=== PATIENT | female | born 1965 | race Asian ===

== ENCOUNTER 2017-03-30 14:00 | Outpatient (CLI) | payer BC ==
--- NOTE | 2017-03-31 09:00 | Mammography Report ---
Bilateral digital screening mammogram with CAD. No prior studies available for comparison. Findings: There is intermediate density of the fibroglandular tissue. A densely calcified subcentimeter nodular asymmetry in the left breast demonstrates benign features. A single biopsy clip is noted in the right breast centrally. No architectural distortion or suspicious calcifications are seen. Impression: No suspicious findings. BI-RADS code: 2. Recommendation: Annual screening.
--- NOTE | 2017-03-31 09:01 | Mammography Report ---
BONE DENSITY STUDY: DEFINITIONS: BMD = Bone Mineral Density T-score = BMD related to mean peak bone mass of young adult (mean expressed in Standard Deviation) Z-score = Age matched BMD expressed in SD World Health Organization (WHO) Diagnostic Criteria Normal T-score > -1 SD Osteopenia T-score between -1 and -2.4 SD Osteoporosis T-score -2.5 SD or below FINDINGS: The weighted average BMD of lumbar spine L1-L4 is 0.734 with a T-score of -2.8. The weighted average BMD of hip is 0.819 with a T-score of -1.0. IMPRESSION: The patient's T-score is diagnostic for osteoporosis and high relative risk for fracture. NOTE: BMD is not the only risk factor for fracture; also consider factors such as the patient's age, risk of falling, previous osteoporotic fracture, family history of osteoporotic fractures, current smoker, and low body weight. Cota's triangle is a region of interest in femur, predominantly of trabecular bone. It is not a true anatomic site, and [facility] does not recommend its use clinically.
== END 2017-03-30 14:01 | disposition home or self-care (01) ==
LOC: MAMMO 14:00
PROVIDERS: ATTEND Hospitalist
DX: Z12.31 Encounter for screening mammogram for malignant neoplasm of breast (principal); M81.0 Age-related osteoporosis without current pathological fracture
CPT/HCPCS: 77080; G0202; 77067

== ENCOUNTER 2017-03-31 07:47 | Outpatient (CLI) | payer BC ==
[2017-03-31 08:10] LABS: Hematocrit 44.2 % (30.3-42.9); Hemoglobin 14.8 gm/dl (10.1-14.3); Mean Corpuscular HGB Conc 34 % (30-34); Mean Corpuscular Hemoglobin 28 pg (28-32); Mean Corpuscular Volume 85 fl (79-97); Platelet Count 202 K/mm3 (140-440); Red Cell Distribution Width 14.2 % (13.2-15.2); White Blood Count 5.3 K/mm3 (4.5-11.0)
[2017-03-31 08:35] LABS: Alanine Aminotransferase 20 units/L (7-56); Albumin 4.6 g/dL (3.9-5); Albumin/Globulin Ratio 1.4 %; Alkaline Phosphatase 64 units/L (35-129); Anion Gap 17 mmol/L; BUN/Creatinine Ratio 16.66; Blood Urea Nitrogen 10 mg/dL (7-17); Calcium 9.7 mg/dL (8.4-10.2); Carbon Dioxide 27 mmol/L (22-30); Chloride 102.1 mmol/L (98-107); Cholesterol 182 mg/dL (50-199); Glucose 109 mg/dL (65-100); HDL Cholesterol 59 mg/dL (40-59); LDL Cholesterol,Direct 104 mg/dL (50-130); Sodium 142 mmol/L (137-145); Total Protein 7.8 g/dL (6.3-8.2); Triglycerides 98 mg/dL (2-149)
[2017-04-03 07:49] LABS: Vitamin D, 25-OH, Total 28 ng/mL (30-100)
== END 2017-03-31 07:48 | disposition home or self-care (01) ==
LOC: LAB 07:47
PROVIDERS: ATTEND Hospitalist
DX: Z00.01 Encounter for general adult medical examination with abnormal findings (principal); R73.01 Impaired fasting glucose; E55.9 Vitamin D deficiency, unspecified; Z79.899 Other long term (current) drug therapy
CPT/HCPCS: 36415; 80053; 80061; 82306; 83036; 84443; 85027

== ENCOUNTER 2017-04-03 11:35 | Emergency (ER) | payer OTHER, BC ==
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
[2017-04-03] MEDS ORDERED: TYLENOL PO ONE (14:04)
[2017-04-03 14:16] VITALS: BP 138/70
== END 2017-04-03 14:15 | disposition home or self-care (01) ==
LOC: ED 11:35
DX: S16.1XXA Strain of muscle, fascia and tendon at neck level, initial encounter (principal); V89.2XXA Person injured in unspecified motor-vehicle accident, traffic, initial encounter; Y93.89 Activity, other specified; Y99.9 Unspecified external cause status; Y92.410 Unspecified street and highway as the place of occurrence of the external cause
CPT/HCPCS: 70450; 72125

== ENCOUNTER 2017-04-10 14:19 | Outpatient (CLI) | payer BC ==
--- NOTE | 2017-04-10 15:02 | Cat Scan Report ---
CT scan of head without contrast: History: Dizziness, headache. Findings: Ventricles are normal in size and midline in location. No evidence of acute ischemia, hemorrhage or mass. No extra-axial fluid collection. Normal brainstem and cerebellum. Normal sinuses and master cells. Impression: No acute intracranial abnormality.
--- NOTE | 2017-04-10 15:16 | XRay Report ---
Thoracic spine: Pain. The anterior bridging spur between T9 and T10. Mild anterior spondylosis is identified between T11 and T12 as well as between C4 and C6. Vertebral height, alignment, and interspaces appear generally preserved. The bones are generally demineralized. No paraspinous soft tissue widening. Impressions: Focal areas of spondylosis. Demineralization. No acute finding noted.
== END 2017-04-10 14:20 | disposition home or self-care (01) ==
LOC: CT 14:19
PROVIDERS: ATTEND Hospitalist
DX: M47.814 Spondylosis without myelopathy or radiculopathy, thoracic region (principal); R51 Headache; R42 Dizziness and giddiness; V89.2XXD Person injured in unspecified motor-vehicle accident, traffic, subsequent encounter
CPT/HCPCS: 70450; 72072

== ENCOUNTER 2017-07-06 12:01 | Outpatient (CLI) | payer BC ==
[2017-07-08 00:27] LABS: Vitamin D, 25-OH, Total 35 ng/mL (30-100)
== END 2017-07-06 12:02 | disposition home or self-care (01) ==
LOC: LAB 12:01
DX: E55.9 Vitamin D deficiency, unspecified (principal)
CPT/HCPCS: 36415; 82306

== ENCOUNTER 2018-02-26 13:21 | Outpatient (CLI) | payer BC ==
--- NOTE | 2018-02-26 14:14 | XRay Report ---
CHEST 2 VIEWS INDICATION: +PPD. COMPARISON: None similar. FINDINGS: PA and lateral chest radiographs demonstrate normal cardiomediastinal silhouette. Clear lungs. Intact bones. CONCLUSION: No acute disease in the chest. Thank you for the opportunity to participate in this patient's care.
== END 2018-02-26 13:22 | disposition home or self-care (01) ==
LOC: XRAY 13:21
PROVIDERS: ATTEND Hospitalist
DX: R76.11 Nonspecific reaction to tuberculin skin test without active tuberculosis (principal); R52 Pain, unspecified
CPT/HCPCS: 71046

== ENCOUNTER 2018-03-31 15:15 | Outpatient (CLI) | payer BC ==
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
== END 2018-03-31 15:16 | disposition home or self-care (01) ==
LOC: MRI 15:15
PROVIDERS: ATTEND Orthopaedic Surgery
DX: M75.102 Unspecified rotator cuff tear or rupture of left shoulder, not specified as traumatic (principal); M19.012 Primary osteoarthritis, left shoulder; M25.812 Other specified joint disorders, left shoulder

== ENCOUNTER 2018-04-20 14:41 | Outpatient (CLI) | payer BC ==
[2018-04-20 07:43] LABS: Hematocrit 40.4 % (30.3-42.9); Hemoglobin 13.8 gm/dl (10.1-14.3); Mean Corpuscular HGB Conc 34 % (30-34); Mean Corpuscular Hemoglobin 29 pg (28-32); Mean Corpuscular Volume 85 fl (79-97); Platelet Count 209 K/mm3 (140-440); Red Blood Count 4.74 M/mm3 (3.65-5.03); Red Cell Distribution Width 13.8 % (13.2-15.2)
[2018-04-20 08:08] LABS: Alanine Aminotransferase 27 units/L (7-56); Albumin 4.1 g/dL (3.9-5); BUN/Creatinine Ratio 14; Blood Urea Nitrogen 10 mg/dL (7-17); Calcium 9.2 mg/dL (8.4-10.2); Chol/HDL Ratio 3.32 %; HDL Cholesterol 55 mg/dL (40-59); Hemolysis Index 31; LDL Cholesterol,Direct 121 mg/dL (50-130)
--- NOTE | 2018-04-21 12:52 | Mammography Report ---
BILATERAL DIGITAL SCREENING MAMMOGRAM with CAD: 04/20/18 14:41:00 CLINICAL: Routine screening. COMPARISON:03/30/17 FINDINGS: The breasts are mostly fatty with bilateral residual retroareolar heterogeneously dense fibroglandular densities.A right retroareolar biopsy clip. No mass, architectural distortion or suspicious calcifications. IMPRESSION: No mammographic evidence of malignancy. BI-RADS CATEGORY: 2 -- Benign RECOMMENDATION: Routine mammographic screening in one year. COMMENT: Patient follow-up letters are generated by our [employer] application.
--- NOTE | 2018-04-21 12:52 | Mammography Report ---
BONE DEXA:04/20/18 14:41:00 CLINICAL: Postmenopausal. COMPARISON: 03/27/17 TECHNIQUE: Two site bone DEXA performed on an Hologic scanner. FINDINGS: The average BMD of the lumbar spine L1-L4 is 0.674g/cm squared with a T-score of -3.4 and a Z-score of -2.3. This compares to 0.734g/cm squared on the last exam and represents a -8.2% change from the previous baseline. The average BMD of the left hip is 0.817g/cm squared with a T-score of -1.0 and a Z-score of -0.3. This compares to 0.819g/cm squared on the last exam and represents a -0.2% change from the previous baseline. IMPRESSION: 1. WHO classification: Osteoporosis with high fracture risk based on spine measurements. A significant decline in spine BMD compared to the prior exam. 2. WHO classification: Normal with average fracture risk based on left hip measurements. A slight decline in left hip BMD compared to the prior exam. RECOMMENDATION: Clinical correlation and routine screening. DEFINITIONS: BMD = Bone Mineral Density T-score = BMD related to mean peak bone mass of young adult (mean expressed in Standard Deviation) Z-score = Age matched BMD expressed in SD World Health Organization (WHO) Diagnostic Criteria Normal T-score > -1 SD Osteopenia T-score between -1 and -2.4 SD Osteoporosis T-score -2.5 SD or below NOTE: BMD is not the only risk factor for fracture; also consider factors such as the patient's age, risk of falling, previous osteoporotic fracture, family history of osteoporotic fractures, current smoker, and low body weight. Z-scores are not calculated if >80 years of age.
== END 2018-04-20 14:42 | disposition home or self-care (01) ==
LOC: MAMMO 14:41
PROVIDERS: ATTEND Hospitalist
DX: Z12.31 Encounter for screening mammogram for malignant neoplasm of breast (principal); M81.0 Age-related osteoporosis without current pathological fracture; R79.89 Other specified abnormal findings of blood chemistry; Z79.899 Other long term (current) drug therapy; Z78.0 Asymptomatic menopausal state
CPT/HCPCS: 36415; 77067; 77080; 80053; 80061; 82306; 83036; 84443; 85027

== ENCOUNTER 2018-08-31 12:58 | Outpatient (CLI) | payer BC ==
--- NOTE | 2018-08-31 13:36 | XRay Report ---
ROUTINE CHEST, TWO VIEWS: HISTORY: Positive PPD. The trachea, heart, mediastinal contour, lung ybarra and bony thorax are unremarkable. IMPRESSION: Unremarkable chest x-ray.
== END 2018-08-31 12:59 | disposition home or self-care (01) ==
LOC: XRAY 12:58
PROVIDERS: ATTEND Hospitalist
DX: R76.11 Nonspecific reaction to tuberculin skin test without active tuberculosis (principal)
CPT/HCPCS: 71046